=== PATIENT | male | born 1925 | race Caucasian/White ===

== ENCOUNTER 2017-02-01 16:11 | Outpatient (CLI) | payer MEDICARE, OTHER ==
--- NOTE | 2017-02-01 18:14 | RAD ---
TWO VIEW CHEST: History: Bronchitis. FINDINGS: Lungs appear clear of infiltrate. There are two calcified granulomata in the left midlung. No evidenc e of vascular congestion, edema, or effusion. Heart size within normal range. Aortic calcification is seen. There is a dual-lead transvenous pacemaker device noted. IMPRESSION: No evidence of acute infiltrate. POS: [facility]
== END 2017-02-01 16:12 | disposition home or self-care (01) ==
LOC: SCSRAD 16:11
PROVIDERS: ATTEND Family Medicine
DX: J20.8 Acute bronchitis due to other specified organisms (principal)
CPT/HCPCS: 71020

== ENCOUNTER 2017-09-03 16:30 | Emergency (ER) | payer MEDICARE, OTHER ==
[2017-09-03 17:19] LABS: #Eosinphils 0.2 thou/uL (0.0-0.7); #Lymphocytes 1.7 thou/uL (1.20-3.40); #Monocytes 0.5 thou/uL (0.11-0.59); #Neutrophils 4.7 thou/uL (1.40-6.50); %Basophils 0.7 % (0.0-1.0); %Eosinophils 2.7 % (0.0-10.0); %Lymphocytes 23.3 % (21.0-51.0); %Monocytes 7.6 % (0.0-10.0); %Neutrophils 65.8 % (42.0-75.0); Hemoglobin 11.8 g/dL (14.0-18.0); Mean Corpuscular HGB CONC 35.5 g/dL (32.0-36.0); Mean Corpuscular Hemoglobin 32.1 pg (27.0-31.0); Mean Corpuscular Volume 90.4 fL (78.0-98.0); Mean Platelet Volume 5.5 fL (7.4-10.4); Platelet Count 219 thou/uL (130-400); RBC Distribution Width 11.4 % (11.5-14.5); Red Blood Cell (RBC) Count 3.68 mill/uL (4.70-6.10); White Blood Cell (WBC) Count 7.1 thou/uL (4.8-10.8)
[2017-09-03 17:26] LABS: INR-International Normal Ratio 0.9; PTT 29.6 SEC (22.9-36.1); Prothrombin Time 12.7 SEC (12.0-14.7)
[2017-09-03 17:40] LABS: ALT (SGPT) 16 U/L (8-55); AST (SGOT) 23 U/L (5-34); Alkaline Phosphatase 86 U/L (40-150); Anion Gap 15 mmol/L (10-20); BUN (Urea Nitrogen) 18 mg/dL (8.4-25.7); Bilirubin, Total 0.4 mg/dL (0.2-1.2); CK (CPK) 188 U/L (30-200); Calc. Creatinine Clearance 0 mL/min (70-130); Carbon Dioxide 23 mmol/L (23-31); Chloride 98 mmol/L (98-107); Estimated GFR-MDRD 63; Globulin 2.9 g/dL (2.4-3.5); Glucose 150 mg/dL (83-110); Potassium 3.8 mmol/L (3.5-5.1); Protein, Total 6.9 g/dL (5.8-8.1); Sodium 132 mmol/L (136-145)
[2017-09-03 17:50] LABS: Bilirubin Negative (Negative); Blood, Urine Trace (Negative); Clarity CLEAR (Clear); Glucose, Urine (Dipstick) Negative (Negative); Leukocyte Small (Negative); Nitrite Negative (Negative); Protein, Urine (Dipstick) Trace mg/dL (Neg-Trace); Specific Gravity, Urine 1.007 (1.002-1.036); Urobilinogen 0.2 mg/dL (0.2-1.0)
[2017-09-03 17:52] LABS: CKMB 5.9 ng/mL (0-6.6); Troponin I Less than 0.010 ng/mL (< 0.028)
[2017-09-03 17:52] LABS: Bacteria/HPF None Seen HPF (None Seen); Hyaline Casts/LPF 0-3 HYALINE CAST LPF (0-3 Hyaline); RBC/HPF 0-3 HPF (0-3); Squamous Epithelial None Seen HPF (0-3)
[2017-09-03] MEDS ORDERED: cloNIDine 0.1 MG TAB ONE (17:52)
--- NOTE | 2017-09-03 18:06 | RAD ---
AP VIEW CHEST: 09/03/17 HISTORY: Dyspnea. AP view chest is obtained. There is ectasia and calcification of the aorta. There is a dual lead intracardiac pacing device. Mil d pulmonary vascular congestion is seen. No evidence of effusions, pneumonia or pneumothorax seen. IMPRESSION: Unremarkable AP view chest. POS: [facility]
== END 2017-09-03 18:56 | disposition home or self-care (01) ==
LOC: ERS 16:30
DX: N39.0 Urinary tract infection, site not specified (principal); I10 Essential (primary) hypertension; E11.9 Type 2 diabetes mellitus without complications; E78.5 Hyperlipidemia, unspecified; Z79.899 Other long term (current) drug therapy; Z79.82 Long term (current) use of aspirin
CPT/HCPCS: 36415; 36416; 71045; 80053; 81003; 81015; 82553; 83880; 84484; 85025; 85379; 85610; 85730; 87086; 93005